=== PATIENT | male | born 1950 | race Caucasian/White ===

== ENCOUNTER 2019-07-10 10:16 | Day surgery (SDC) | payer MEDICARE ==
[~2019-07-10] VITALS: Ht 177.8 cm; Wt 109.5 kg
[~2019-07-10 10:16] MED LIST: RAMI5 PO
== END 2019-07-10 13:13 | disposition home or self-care (01) ==
LOC: ORSCSDS 10:16
PROVIDERS: Podiatrist Foot & Ankle Surgery
PROC: 0QBQ0ZZ Excision of Right Toe Phalanx, Open Approach (ICD-10-PCS; principal; 2019-07-10 11:30)
DX: M89.8X7 Other specified disorders of bone, ankle and foot (principal); I10 Essential (primary) hypertension; E66.9 Obesity, unspecified; Z68.33 Body mass index [BMI] 33.0-33.9, adult; Z79.899 Other long term (current) drug therapy
CPT/HCPCS: J0690; J2001; J2704; J7120